=== PATIENT | male | born 1990 | race Caucasian/White ===

== ENCOUNTER 2019-09-20 22:02 | Emergency (ER) | payer SELFPAY ==
[2019-09-20] MEDS ORDERED: Diph,Pert(Acell),Tet Vac 0.5 ML SYR IM ONE (22:05)
[2019-09-20] MEDS ORDERED: CEFAZOLIN 2 Gram 2 GM/50 ML BAG IVPB ONE (22:05)
[2019-09-20] MEDS ORDERED: FENTANYL PF 100MCG/2ML VIAL IVP ONE (22:05)
[2019-09-20] MEDS ORDERED: 0.9 % SODIUM CHLORIDE 1000ML 1,000 ML IV ONE (22:05)
[2019-09-20 22:14] LABS: ABSOLUTE NEUTROPHIL COUNT 4.61; BASO % 0.6 % (0-6); EOS % 1.8 % (0-6); HEMATOCRIT 43.7 % (42.0-52.0); HEMOGLOBIN 15.1 gm/dl (14.0-18.0); LYMPH % 40.3 % (16-45); MEAN CELL VOLUME 89.4 fl (81-97); MEAN CORPUSCULAR HEMOGLOBIN 30.9 pg (27-33); MEAN CORPUSCULAR HGB CONC 34.6 g/dl (32-36); MEAN PLATELET VOLUME 10.4 fl (7.4-10.4); MONO % 10.3 % (0-9); PLATELET COUNT 339 K/uL (130-400); RED BLOOD COUNT 4.89 M/uL (4.40-5.70); WHITE BLOOD COUNT W/O DIFF 9.8 K/uL (4.2-12.2)
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
[2019-09-20 22:23] LABS: BLOOD UREA NITROGEN 15 mg/dL (6-20); CREATININE 1.1 mg/dL (0.7-1.2); EST GLOMERULAR FILTRATION RATE > 60 mL/min
[2019-09-20 22:24] LABS: TOTAL PROTEIN 7.3 g/dL (6.6-8.7)
[2019-09-20 22:26] LABS: GLUCOSE,RANDOM 94 mg/dL (74-109); PARTIAL THROMBOPLASTIN TIME 22.4 SECONDS (24.5-39.1); PROTHROMBIN TIME (PATIENT) 10.2 SECONDS (9.5-12.1)
[2019-09-20 22:28] LABS: ALB/GLOB RATIO 1.4 (1.1-1.8); ALBUMIN 4.3 g/dL (4.0-5.0); ALT/SGPT 19 U/L (<41); AST/SGOT 19 U/L (10.0-50.0)
[2019-09-20 22:29] LABS: ALCOHOL < 0.010 g/dL (0-0.010); ALKALINE PHOSPHATASE 59 U/L (40-129)
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
== END 2019-09-20 22:50 | disposition short-term general hospital (02) ==
LOC: ER 22:02
DX: S81.832A Puncture wound without foreign body, left lower leg, initial encounter (principal); S61.432A Puncture wound without foreign body of left hand, initial encounter; W32.0XXA Accidental handgun discharge, initial encounter
CPT/HCPCS: 80053; 80320; 85025; 85610; 85730; 90715; 96365; 96372; 96375; 99285; J7030